=== PATIENT | male | born 1965 | race African-American/Black ===

== ENCOUNTER 2019-04-10 15:30 | Inpatient (IN) | payer BC ==
[2019-04-10 22:08] VITALS: BMI 24.3
--- NOTE | 2019-04-10 22:57 | HP ---
"COWS - Scale Resting Pulse: 0= [place] 80 or Below Sweatin=Flushed/Facial Moisture Restless Observation: 1= Difficult to Sit Still Pupil Size: 2= Moderately Dilated (Pupils = 4 mm) Bone or Joint Aches: 1= Mild Discomfort Runny Nose/ Eye Tearin= Runny Nose/Eyes GI Upset > 30mins: 1= Stomach Cramp Tremor Observation: 4= Gross Tremor/Twitching Yawning Observation: 0= None Anxiety or Irritability: 1=Feels Anxious/Irritable Goose Flesh Skin: 0=Smooth Skin COWS Score: 14 CIWA Score Nausea/Vomitin-No Nausea/No Vomiting Muscle Tremors: 4-Moderate,w/Arms Extend Anxiety: 1-Mildly Anxious Agitation: 3 Paroxysmal Sweats: 3 (Increased facial moisture) Orientation: 0-Oriented Tacttile Disturbances: 1-Very Mild Itch/Numbness Auditory Disturbances: 0-None Visual Disturbances: 0-None Headache: 2-Mild CIWA-Ar Total Score: 14 - Admission Criteria [facility]ASAS Guidelines: Admission for Medically Managed Detox: Requires at least one of the followin. CIWA greater than 12 2. Seizures within the past 24 hours 3. Delirium tremens within the past 24 hours 4. Hallucinations within the past 24 hours 5. Acute intervention needed for co occurring medical disorder 6. Acute intervention needed for co occurring psychiatric disorder 7. Severe withdrawal that cannot be handled at a lower level of care (continued vomiting, continued diarrhea, abnormal vital signs) requiring intravenous medication and/or fluids 8. Patient presents the following: CIWA greater than 12 Admission Criteria Met: Admission criteria met Admission ROS [facility] Chief Complaint: Having alcohol and heroin withdrawal Allergies/Adverse Reactions: Allergies Allergy/AdvReac Type Severity Reaction Status Date / Time No Known Allergies Allergy Verified 04/10/19 21:57 History of Present Illness: Here for heroin alcohol, and cocaine detox. Alcohol use began at age 23. States current use since started drinking. Cocaine - smokes $60 daily since age 23. Heroin use since age 32. Overdose x 4. Last OD in 2017. No Narcan Kit at home. Will consider upon discharge. Nicotine use began at age 20. PMHx: HTN, DM, Asthma (last exacerbation 6 months ago); Hep C (Not-treated) MHHx: Anxiety and depression. Denies thoughts of harming self or others. Not seeing a MH Provider Search Terms: Blayne Grijalva, 1965 Search Date: 04/10/2019 10:51:19 PM The Drug Utilization Report below displays all of the controlled substance prescriptions, if any, that your patient has filled in the last twelve months. The information displayed on this report is compiled from pharmacy submissions to the Department, and accurately reflects the information as submitted by the pharmacies. This report was requested by: Angelica Diaz | Reference #: [id number] There are no results for the search terms that you entered. Exam Limitations: No Limitations - Ebola screening Have you traveled outside of the country in the last 21 days: No (N) Have you had contact with anyone from an Ebola affected area: No Have you been sick,other than usual withdrawal symptoms: No (Denies recent measles exposure) Do you have a fever: No - Review of Systems Constitutional: Chills, Diaphoresis, Changes in sleep (Difficulty falling and staying asleep.), Unintentional Wgt. Loss EENT: reports: Blurred Vision, Nose Congestion, Dental Problems (Missing teeth. Chews and swallows ok) Respiratory: reports: No Symptoms reported Cardiac: reports: No Symptoms Reported GI: reports: Diarrhea (tannish, watery), Nausea, Indigestion (acid reflux - use to take prevacid), Abdominal cramping : reports: No Symptoms Reported Musculoskeletal: reports: Back Pain (achy r/t withdrawal), Muscle Pain (achy r/ t withdrawal) Integumentary: reports: Rash (on back r/t bite) Neuro: reports: Headache (Frontal) Endocrine: reports: No Symptoms Reported Hematology: reports: No Symptoms Reported Psychiatric: reports: Judgement Intact, Orientated x3, Agitated, Anxious, Depressed (Denies thoughts of harming self or others.) Patient History - PPD History Previous Implant?: Yes Documented Results: Negative w/o proof Implanted On Prior [facility] Admission?: Yes PPD to be Administered?: Yes - Smoking Cessation Smoking history: Current every day smoker Have you smoked in the past 12 months: Yes Aproximately how many cigarettes per day: 20 Hx Chewing Tobacco Use: No Initiated information on smoking cessation: Yes 'Breaking Loose' booklet given: 04/10/19 - Substance & Tx. History Hx Alcohol Use: Yes Hx Substance Use: Yes Substance Use Type: Alcohol, Cocaine, Heroin Hx Substance Use Treatment: Yes (detox, rehab) - Substances abused Heroin Substance route: Inhalation Frequency: Daily Amount used: 1 bundle/day Age of first use: 32 Date of last use: 04/09/19 Alcohol Substance route: Oral Frequency: Daily Amount used: 6 pack of 16 oz beers/day Age of first use: 23 Date of last use: 04/09/19 Admission Physical Exam S - Vital Signs Vital Signs: Vital Signs - 24 hr 04/10/19 22:05 Temperature 98.2 F Pulse Rate 72 Respiratory 16 Rate Blood Pressure 153/106 H - Physical General Appearance: Yes: Nourished, Mild Distress, Tremorous, Irritable, Sweating, Anxious HEENTM: Yes: EOMI (Jerking movement of eyes on lateral gaze.), Hearing grossly Normal, Normocephalic, Normal Voice, DENEEN (Pupils = 4 mm), Pharynx Normal, Rhinorrhea Respiratory: Yes: Lungs Clear, Normal Breath Sounds, No Respiratory Distress Neck: Yes: No masses,lesions,Nodules, Supple Breast: Yes: Breast Exam Deferred Cardiology: Yes: Regular Rhythm, Regular Rate, S1, S2, Murmur Abdominal: Yes: Soft, Increased Bowel Sounds, Tenderness (RUQ tenderness upon palpation. No guarding. No rebound.) Genitourinary: Yes: Within Normal Limits Back: Yes: Normal Inspection Musculoskeletal: Yes: full range of Motion, Gait Steady Extremities: Yes: Normal Capillary Refill, Normal Range of Motion, Non-Tender Neurological: Yes: home care provider II-XII NML intact (Jerking movement of eyes on lateral gaze.), Fully Oriented, Alert, Motor Strength 5/5, Normal Response Integumentary: Yes: Normal Color, Warm, Moist (Feet w/ flaky skin), Other ( Scattered scratch [place] and old scaring.) Lymphatic: Yes: Within Normal Limits - Diagnostic (1) Alcohol dependence with uncomplicated withdrawal Current Visit: Yes Status: Acute (2) Opioid dependence with withdrawal Current Visit: Yes Status: Acute (3) Nicotine dependence, uncomplicated Current Visit: Yes Status: Chronic Qualifiers: Nicotine product type: cigarettes Qualified Code(s): F17.210 - Nicotine dependence, cigarettes, uncomplicated (4) History of asthma Current Visit: No Status: Chronic (5) Diabetes Current Visit: Yes Status: Chronic Qualifiers: Diabetes mellitus type: type 2 Diabetes mellitus terminal clerk insulin use: without terminal clerk use Diabetes mellitus complication status: without complication Qualified Code(s): E11.9 - Type 2 diabetes mellitus without complications (6) Murmur, cardiac Current Visit: Yes Status: Chronic (7) Essential (primary) hypertension Current Visit: Yes Status: Chronic (8) Tinea pedis Current Visit: Yes Status: Chronic Qualifiers: Laterality: bilateral Qualified Code(s): B35.3 - Tinea pedis (9) Scratch lola Current Visit: Yes Status: Chronic (10) Nystagmus Current Visit: Yes Status: Acute (11) Cocaine dependence, uncomplicated Current Visit: Yes Status: Chronic Cleared for Admission S - Detox or Rehab [facility] Level of Care: Medically Managed Detox Regimen/Protocol: Methadone/Librium Claeared for Rehab Admission: No Inpatient Rehab Admission - Rehab Decision to Admit Inpatient rehab admission?: No"
[2019-04-10] MEDS ORDERED: NICOTINE POLACRILEX 2 MG GUM BUC PRN (23:21)
[2019-04-10] MEDS ORDERED: BISMUTH SUBSALICYLATE 524 MG/30 ML UD PO PRN (23:21)
[2019-04-10] MEDS ORDERED: MAGNESIUM HYDROX 2400MG/30ML ORAL SUSPENSION 30 ML CUP PO PRN (23:21)
[2019-04-10] MEDS ORDERED: MAG HYDROX/AL HYDROX/SIMETH 30 ML UNIT-DOSE CUP PO PRN (23:21)
[2019-04-10] MEDS ORDERED: METHOCARBAMOL 500 MG TABLET PO PRN (23:21)
[2019-04-10] MEDS ORDERED: PROCHLORPERAZINE MALEATE 5 MG TABLET PO PRN (23:21)
[2019-04-10] MEDS ORDERED: IBUPROFEN 400 MG TABLET (FP) PO PRN (23:21)
[2019-04-10] MEDS ORDERED: ACETAMINOPHEN 325 MG TABLET (FP) PO PRN ×2 (23:21)
[2019-04-10] MEDS ORDERED: MAGNESIUM CITRATE 300 ML BOTTLE PO PRN (23:21)
[2019-04-10] MEDS ORDERED: cloNIDine HCL 0.1 MG TABLET PO ONE (23:33)
[2019-04-10] MEDS ORDERED: INSULIN SLIDING SCALE (NOVOLOG) 1 VIAL SQ SCH (23:55)
[2019-04-11] MEDS ORDERED: cloNIDine HCL 0.1 MG TABLET PO PRN (00:05)
[2019-04-11] MEDS ORDERED: NALOXONE HCL 0.4 MG/ML VIAL IVPUSH PRN (00:05)
[2019-04-11] MEDS ORDERED: chlordiazePOXIDE HCL 25 MG CAPSULE PO PRN (00:05)
[2019-04-11] MEDS ORDERED: chlordiazePOXIDE HCL 25 MG CAPSULE PO ONE (00:05)
[2019-04-11] MEDS ORDERED: METHADONE HCL 10 MG TABLET (FOR DETOX USE ONLY) PO ONE ×2 (00:10→10:00)
[2019-04-11] MEDS: chlordiazePOXIDE HCL 25 MG CAPSULE PO SCH ×4 (05:31→22:15)
[2019-04-11] MEDS: INSULIN SLIDING SCALE (NOVOLOG) 1 VIAL SQ SCH ×4 (06:37→21:42)
[2019-04-11] MEDS: metFORMIN HCL 500 MG TABLET (FP) PO SCH ×2 (07:52→16:48)
[2019-04-11] MEDS ORDERED: metFORMIN HCL 500 MG TABLET (FP) PO SCH (10:00)
[2019-04-11 10:07] LABS: HEMATOCRIT 40.6 % (35.4-49); HEMOGLOBIN 13.3 GM/dL (11.7-16.9); MCHC 32.8 g/dl (32.0-35.9); MEAN CELL VOLUME 94.6 fl (80-96); MEAN PLT VOLUME 8.8 fl (7.5-11.1); PLATELET COUNT 222 K/MM3 (134-434); RBC 4.29 M/mm3 (4.00-5.60); RDW 13.7 % (11.9-15.9); WHITE BLOOD COUNT 3.5 K/mm3 (4.0-10.0)
[2019-04-11 10:24] LABS: ALBUMIN 3.6 g/dl (3.4-5.0); BILIRUBIN,TOTAL 0.5 mg/dL (0.2-1); CALCIUM 9.1 mg/dL (8.5-10.1); CREATININE 1.2 mg/dL (0.55-1.3); POTASSIUM 4.2 mmol/L (3.5-5.1); TOT PROT 7.4 g/dl (6.4-8.2)
[2019-04-11] MEDS: NICOTINE 21 MG/24 HOURS TOPICAL PATCH TD SCH (10:43)
[2019-04-11] MEDS: LISINOPRIL 10 MG TABLET (FP) PO SCH (10:43)
[2019-04-11] MEDS: PRENATAL VITAMINS W/ FOLIC ACID TABLET (FP) PO SCH (10:43)
--- NOTE | 2019-04-11 10:52 | EKG ---
Test Reason : Blood Pressure : / mmHG Vent. Rate : 067 BPM Atrial Rate : 067 BPM P-R Int : 152 ms QRS Dur : 092 ms QT Int : 396 ms P-R-T Axes : 075 051 040 degrees QTc Int : 418 ms NORMAL SINUS RHYTHM POSSIBLE LEFT ATRIAL ENLARGEMENT INCOMPLETE RBBB NO PREVIOUS ECGS AVAILABLE Confirmed by LINDA HUTCHINSON MD ([id number]) on 04/11/2019 10:52:29 AM Referred By: Confirmed By:LINDA HUTCHINSON MD
[2019-04-11] MEDS: TOLNAFTATE 1% CREAM 15 GM TUBE TP SCH ×2 (11:19→22:15)
[2019-04-11 11:40] LABS: PH,URINE 6.5 (5.0-8.0); URINE APPEARANCE CLEAR; URINE BILIRUBIN NEGATIVE (NEGATIVE); URINE COLOR YELLOW; URINE GLUCOSE (UA) NEGATIVE (NEGATIVE); URINE KETONE NEGATIVE (NEGATIVE); URINE LEUK ESTERASE NEGATIVE (NEGATIVE); URINE NITRITE NEGATIVE (NEGATIVE); URINE PROTEIN NEGATIVE (NEGATIVE)
[2019-04-11] MEDS ORDERED: PNEUMOC 13-VAL CONJ-DIP CRM/PF 0.5 ML DISP.SYRIN IM ONE (12:00)
[2019-04-11] MEDS ORDERED: PNEUMOCOCCAL 23 VACCINE 0.5 ML VIAL IM ONE (12:00)
--- NOTE | 2019-04-11 12:40 | PN ---
[facility] CIWA - CIWA Score Nausea/Vomitin-No Nausea/No Vomiting Muscle Tremors: 3 Anxiety: 4-Mod. Anxious/Guarded Agitation: 3 Paroxysmal Sweats: 1-Minimal Palms Moist Orientation: 0-Oriented Tacttile Disturbances: 0-None Auditory Disturbances: 0-None Visual Disturbances: 0-None Headache: 0-None Present CIWA-Ar Total Score: 11 S COWS - Scale Resting Pulse: 0= [place] 80 or Below Sweatin= Chills/Flushing Restless Observation: 3= Extraneous Movement Pupil Size: 0= Normal to Room Light Bone or Joint Aches: 0= None Runny Nose/ Eye Tearin= None GI Upset > 30mins: 0= None Tremor Observation of Outstretched Hands: 2= Slight Tremor Visible Yawning Observation: 0= None Anxiety or Irritability: 1=Feels Anxious/Irritable Goose Flesh Skin: 0=Smooth Skin COWS Score: 7 S Progress Note (SOAP) Subjective: C/O FATIGUE, ANXIETY,SWEATS/CHILLS. Objective: 04/11/19 12:39 Vital Signs 04/11/19 04/11/19 06:06 09:35 Temperature 97.8 F 97.9 F Pulse Rate 62 74 Respiratory 18 16 Rate Blood Pressure 129/80 128/84 Laboratory Tests 04/11/19 04/11/19 04/11/19 00:28 05:30 07:45 WBC 3.5 L RBC 4.29 Hgb 13.3 Hct 40.6 MCV 94.6 MCH 31.0 MCHC 32.8 RDW 13.7 Plt Count 222 MPV 8.8 Sodium Potassium Chloride Carbon Dioxide Anion Gap BUN Creatinine Est GFR (CKD-EPI)AfAm Est GFR (CKD-EPI)NonAf POC Glucometer 74 98 Random Glucose Calcium Total Bilirubin AST ALT Alkaline Phosphatase Total Protein Albumin Urine Color Urine Appearance Urine pH Ur Specific [place] Urine Protein Urine Glucose (UA) Urine Ketones Urine Blood Urine Nitrite Urine Bilirubin Urine Urobilinogen Ur Leukocyte Esterase 04/11/19 04/11/19 04/11/19 07:45 08:45 11:42 WBC RBC Hgb Hct MCV MCH MCHC RDW Plt Count MPV Sodium 140 Potassium 4.2 Chloride 104 Carbon Dioxide 31 Anion Gap 6 L BUN 15 Creatinine 1.2 Est GFR (CKD-EPI)AfAm 80.10 Est GFR (CKD-EPI)NonAf 69.11 POC Glucometer 123 Random Glucose 105 Calcium 9.1 Total Bilirubin 0.5 AST 37 ALT 39 Alkaline Phosphatase 65 Total Protein 7.4 Albumin 3.6 Urine Color Yellow Urine Appearance Clear Urine pH 6.5 Ur Specific [place] 1.020 Urine Protein Negative Urine Glucose (UA) Negative Urine Ketones Negative Urine Blood Negative Urine Nitrite Negative Urine Bilirubin Negative Urine Urobilinogen 2.0 Ur Leukocyte Esterase Negative Assessment: 04/11/19 12:40 WITHDRAWAL SX Plan: CONTINUE DETOX INCREASE PO FLUIDS.
[2019-04-11] MEDS: MENTHOL/PHENOL 1 EACH UD MM PRN (17:49)
[2019-04-11] MEDS: THIAMINE HCL 100 MG TABLET (FP) PO SCH (22:15)
[2019-04-11] MEDS: MELATONIN 5 MG TABLETS PO PRN (22:16)
[2019-04-12] MEDS: chlordiazePOXIDE HCL 25 MG CAPSULE PO SCH ×4 (05:33→22:28)
[2019-04-12] MEDS: INSULIN SLIDING SCALE (NOVOLOG) 1 VIAL SQ SCH ×4 (06:24→22:28)
[2019-04-12] MEDS: metFORMIN HCL 500 MG TABLET (FP) PO SCH ×2 (08:09→17:41)
[2019-04-12] MEDS ORDERED: METHADONE HCL 10 MG TABLET (FOR DETOX USE ONLY) PO ONE (10:00)
[2019-04-12] MEDS: TOLNAFTATE 1% CREAM 15 GM TUBE TP SCH ×2 (10:31→22:28)
[2019-04-12] MEDS: LISINOPRIL 10 MG TABLET (FP) PO SCH (10:31)
[2019-04-12] MEDS: NICOTINE 21 MG/24 HOURS TOPICAL PATCH TD SCH (10:32)
[2019-04-12] MEDS: PRENATAL VITAMINS W/ FOLIC ACID TABLET (FP) PO SCH (10:32)
--- NOTE | 2019-04-12 12:47 | PN ---
[facility] CIWA - CIWA Score Nausea/Vomitin-Mild Nausea/No Vomiting Muscle Tremors: 3 Anxiety: 2 Agitation: 2 Paroxysmal Sweats: 1-Minimal Palms Moist Orientation: 0-Oriented Tacttile Disturbances: 0-None Auditory Disturbances: 0-None Visual Disturbances: 0-None Headache: 0-None Present CIWA-Ar Total Score: 9 BHS COWS - Scale Resting Pulse: 0= [place] 80 or Below Sweatin= Chills/Flushing Restless Observation: 0= Sits Still Pupil Size: 0= Normal to Room Light Bone or Joint Aches: 1= Mild Discomfort Runny Nose/ Eye Tearin= Nasal Congestion GI Upset > 30mins: 1= Stomach Cramp Tremor Observation of Outstretched Hands: 1= Tremor [place], Not Seen Yawning Observation: 0= None Anxiety or Irritability: 1=Feels Anxious/Irritable Goose Flesh Skin: 0=Smooth Skin COWS Score: 6 S Progress Note (SOAP) Subjective: feeling ok today discuss medication assisted maintenance treatment program Objective: 04/12/19 12:46 Vital Signs Temperature 97.9 F 04/12/19 09:17 Pulse Rate 76 04/12/19 09:17 Respiratory Rate 18 04/12/19 09:17 Blood Pressure 118/82 04/12/19 09:17 O2 Sat by Pulse Oximetry (%) Laboratory Last Values WBC 3.5 K/mm3 (4.0-10.0) L 04/11/19 07:45 RBC 4.29 M/mm3 (4.00-5.60) 04/11/19 07:45 Hgb 13.3 GM/dL (11.7-16.9) 04/11/19 07:45 Hct 40.6 % (35.4-49) 04/11/19 07:45 MCV 94.6 fl (80-96) 04/11/19 07:45 MCH 31.0 pg (25.7-33.7) 04/11/19 07:45 MCHC 32.8 g/dl (32.0-35.9) 04/11/19 07:45 RDW 13.7 % (11.9-15.9) 04/11/19 07:45 Plt Count 222 K/MM3 (134-434) 04/11/19 07:45 MPV 8.8 fl (7.5-11.1) 04/11/19 07:45 Sodium 140 mmol/L (136-145) 04/11/19 07:45 Potassium 4.2 mmol/L (3.5-5.1) 04/11/19 07:45 Chloride 104 mmol/L (98-107) 04/11/19 07:45 Carbon Dioxide 31 mmol/L (21-32) 04/11/19 07:45 Anion Gap 6 MMOL/L (8-16) L 04/11/19 07:45 BUN 15 mg/dL (7-18) 04/11/19 07:45 Creatinine 1.2 mg/dL (0.55-1.3) 04/11/19 07:45 Est GFR (CKD-EPI)AfAm 80.10 04/11/19 07:45 Est GFR (CKD-EPI)NonAf 69.11 04/11/19 07:45 POC Glucometer 118 UNITS (80-120) 04/12/19 10:35 Random Glucose 105 mg/dL (74-106) 04/11/19 07:45 Calcium 9.1 mg/dL (8.5-10.1) 04/11/19 07:45 Total Bilirubin 0.5 mg/dL (0.2-1) 04/11/19 07:45 AST 37 U/L (15-37) 04/11/19 07:45 ALT 39 U/L (13-61) 04/11/19 07:45 Alkaline Phosphatase 65 U/L (45-117) 04/11/19 07:45 Total Protein 7.4 g/dl (6.4-8.2) 04/11/19 07:45 Albumin 3.6 g/dl (3.4-5.0) 04/11/19 07:45 Urine Color Yellow 04/11/19 08:45 Urine Appearance Clear 04/11/19 08:45 Urine pH 6.5 (5.0-8.0) 04/11/19 08:45 Ur Specific [place] 1.020 (1.010-1.035) 04/11/19 08:45 Urine Protein Negative (NEGATIVE) 04/11/19 08:45 Urine Glucose (UA) Negative (NEGATIVE) 04/11/19 08:45 Urine Ketones Negative (NEGATIVE) 04/11/19 08:45 Urine Blood Negative (NEGATIVE) 04/11/19 08:45 Urine Nitrite Negative (NEGATIVE) 04/11/19 08:45 Urine Bilirubin Negative (NEGATIVE) 04/11/19 08:45 Urine Urobilinogen 2.0 mg/dL (0.2-1.0) 04/11/19 08:45 Ur Leukocyte Esterase Negative (NEGATIVE) 04/11/19 08:45 RPR Titer Nonreactive (NONREACTIVE) 04/11/19 07:45 lab noted Assessment: 04/12/19 12:47 alcohol and opiate withdrawal sx Plan: continue detox
[2019-04-12] MEDS: MENTHOL/PHENOL 1 EACH UD MM PRN (17:43)
[2019-04-12] MEDS: THIAMINE HCL 100 MG TABLET (FP) PO SCH (22:28)
[2019-04-12] MEDS: MELATONIN 5 MG TABLETS PO PRN (22:28)
[2019-04-13] MEDS ORDERED: chlordiazePOXIDE HCL 10 MG CAPSULE PO PRN (05:00)
[2019-04-13] MEDS: chlordiazePOXIDE HCL 10 MG CAPSULE PO SCH ×4 (06:03→22:13)
[2019-04-13] MEDS: metFORMIN HCL 500 MG TABLET (FP) PO SCH ×2 (06:04→17:34)
[2019-04-13] MEDS: INSULIN SLIDING SCALE (NOVOLOG) 1 VIAL SQ SCH ×4 (06:15→22:12)
[2019-04-13] MEDS ORDERED: METHADONE HCL 10 MG TABLET (FOR DETOX USE ONLY) PO ONE (10:00)
[2019-04-13] MEDS: NICOTINE 21 MG/24 HOURS TOPICAL PATCH TD SCH (10:43)
[2019-04-13] MEDS: LISINOPRIL 10 MG TABLET (FP) PO SCH (10:44)
[2019-04-13] MEDS: PRENATAL VITAMINS W/ FOLIC ACID TABLET (FP) PO SCH (10:44)
[2019-04-13] MEDS: TOLNAFTATE 1% CREAM 15 GM TUBE TP SCH ×2 (10:44→22:13)
[2019-04-13] MEDS ORDERED: ALBUTEROL SO4 8 GM HFA INHALER IH ONE (14:34)
[2019-04-13] MEDS ORDERED: ALBUTEROL SO4 8 GM HFA INHALER IH PRN (14:46)
[2019-04-13] MEDS ORDERED: ALBUTEROL SO4 0.083% IH SOL 2.5 MG/3 ML VIAL.NEB. NEB PRN (15:29)
--- NOTE | 2019-04-13 15:31 | PN ---
[facility] CIWA - CIWA Score Nausea/Vomitin-Mild Nausea/No Vomiting Muscle Tremors: 2 Anxiety: 2 Agitation: 2 Paroxysmal Sweats: 1-Minimal Palms Moist Orientation: 0-Oriented Tacttile Disturbances: 0-None Auditory Disturbances: 0-None Visual Disturbances: 0-None Headache: 0-None Present CIWA-Ar Total Score: 8 S COWS - Scale Resting Pulse: 0= [place] 80 or Below Sweatin= Chills/Flushing Restless Observation: 0= Sits Still Pupil Size: 0= Normal to Room Light Bone or Joint Aches: 1= Mild Discomfort Runny Nose/ Eye Tearin= None GI Upset > 30mins: 0= None Tremor Observation of Outstretched Hands: 1= Tremor [place], Not Seen Yawning Observation: 0= None Anxiety or Irritability: 1=Feels Anxious/Irritable Goose Flesh Skin: 0=Smooth Skin COWS Score: 4 S Progress Note (SOAP) Subjective: chronic history of asthma ventolin and nebulizer prn mild wheezing bilaterally mid lob denies dizziness Objective: 04/13/19 15:37 Vital Signs Temperature 97.2 F L 04/13/19 13:28 Pulse Rate 72 04/13/19 13:28 Respiratory Rate 18 04/13/19 13:28 Blood Pressure 131/81 04/13/19 13:28 O2 Sat by Pulse Oximetry (%) Laboratory Last Values WBC 3.5 K/mm3 (4.0-10.0) L 04/11/19 07:45 RBC 4.29 M/mm3 (4.00-5.60) 04/11/19 07:45 Hgb 13.3 GM/dL (11.7-16.9) 04/11/19 07:45 Hct 40.6 % (35.4-49) 04/11/19 07:45 MCV 94.6 fl (80-96) 04/11/19 07:45 MCH 31.0 pg (25.7-33.7) 04/11/19 07:45 MCHC 32.8 g/dl (32.0-35.9) 04/11/19 07:45 RDW 13.7 % (11.9-15.9) 04/11/19 07:45 Plt Count 222 K/MM3 (134-434) 04/11/19 07:45 MPV 8.8 fl (7.5-11.1) 04/11/19 07:45 Sodium 140 mmol/L (136-145) 04/11/19 07:45 Potassium 4.2 mmol/L (3.5-5.1) 04/11/19 07:45 Chloride 104 mmol/L (98-107) 04/11/19 07:45 Carbon Dioxide 31 mmol/L (21-32) 04/11/19 07:45 Anion Gap 6 MMOL/L (8-16) L 04/11/19 07:45 BUN 15 mg/dL (7-18) 04/11/19 07:45 Creatinine 1.2 mg/dL (0.55-1.3) 04/11/19 07:45 Est GFR (CKD-EPI)AfAm 80.10 04/11/19 07:45 Est GFR (CKD-EPI)NonAf 69.11 04/11/19 07:45 POC Glucometer 117 UNITS (80-120) 04/13/19 12:07 Random Glucose 105 mg/dL (74-106) 04/11/19 07:45 Calcium 9.1 mg/dL (8.5-10.1) 04/11/19 07:45 Total Bilirubin 0.5 mg/dL (0.2-1) 04/11/19 07:45 AST 37 U/L (15-37) 04/11/19 07:45 ALT 39 U/L (13-61) 04/11/19 07:45 Alkaline Phosphatase 65 U/L (45-117) 04/11/19 07:45 Total Protein 7.4 g/dl (6.4-8.2) 04/11/19 07:45 Albumin 3.6 g/dl (3.4-5.0) 04/11/19 07:45 Urine Color Yellow 04/11/19 08:45 Urine Appearance Clear 04/11/19 08:45 Urine pH 6.5 (5.0-8.0) 04/11/19 08:45 Ur Specific [place] 1.020 (1.010-1.035) 04/11/19 08:45 Urine Protein Negative (NEGATIVE) 04/11/19 08:45 Urine Glucose (UA) Negative (NEGATIVE) 04/11/19 08:45 Urine Ketones Negative (NEGATIVE) 04/11/19 08:45 Urine Blood Negative (NEGATIVE) 04/11/19 08:45 Urine Nitrite Negative (NEGATIVE) 04/11/19 08:45 Urine Bilirubin Negative (NEGATIVE) 04/11/19 08:45 Urine Urobilinogen 2.0 mg/dL (0.2-1.0) 04/11/19 08:45 Ur Leukocyte Esterase Negative (NEGATIVE) 04/11/19 08:45 RPR Titer Nonreactive (NONREACTIVE) 04/11/19 07:45 lab noted Assessment: 04/13/19 15:38 withdrawal sx Plan: continue detox
[2019-04-13] MEDS: THIAMINE HCL 100 MG TABLET (FP) PO SCH (22:12)
[2019-04-14] MEDS: chlordiazePOXIDE HCL 10 MG CAPSULE PO SCH ×2 (06:08→16:50)
[2019-04-14] MEDS: metFORMIN HCL 500 MG TABLET (FP) PO SCH ×2 (06:08→16:50)
[2019-04-14] MEDS: INSULIN SLIDING SCALE (NOVOLOG) 1 VIAL SQ SCH ×4 (07:14→22:07)
[2019-04-14] MEDS ORDERED: METHADONE HCL 10 MG TABLET (FOR DETOX USE ONLY) PO ONE (10:00)
[2019-04-14] MEDS: TOLNAFTATE 1% CREAM 15 GM TUBE TP SCH ×2 (10:20→22:08)
[2019-04-14] MEDS: LISINOPRIL 10 MG TABLET (FP) PO SCH (10:20)
[2019-04-14] MEDS: PRENATAL VITAMINS W/ FOLIC ACID TABLET (FP) PO SCH (10:20)
[2019-04-14] MEDS: NICOTINE 21 MG/24 HOURS TOPICAL PATCH TD SCH (10:20)
--- NOTE | 2019-04-14 15:36 | PN ---
[facility] CIWA - CIWA Score Nausea/Vomitin-No Nausea/No Vomiting Muscle Tremors: 2 Anxiety: 1-Mildly Anxious Agitation: 2 Paroxysmal Sweats: No Perspiration Orientation: 0-Oriented Tacttile Disturbances: 0-None Auditory Disturbances: 0-None Visual Disturbances: 0-None Headache: 0-None Present CIWA-Ar Total Score: 5 S COWS - Scale Resting Pulse: 0= [place] 80 or Below Sweatin= No chills or Flushing Restless Observation: 0= Sits Still Pupil Size: 0= Normal to Room Light Bone or Joint Aches: 0= None Runny Nose/ Eye Tearin= None GI Upset > 30mins: 0= None Tremor Observation of Outstretched Hands: 0= None Yawning Observation: 1= 1-2x During Session Anxiety or Irritability: 1=Feels Anxious/Irritable Goose Flesh Skin: 0=Smooth Skin COWS Score: 2 [facility] Progress Note (SOAP) Subjective: feeling better today hesitating to discuss aftercare with staff discuss medication assisted maintenance treatment program Objective: 04/14/19 15:38 Vital Signs Temperature 96.7 F L 04/14/19 13:10 Pulse Rate 72 04/14/19 13:10 Respiratory Rate 18 04/14/19 13:10 Blood Pressure 129/74 04/14/19 13:10 O2 Sat by Pulse Oximetry (%) Laboratory Last Values WBC 3.5 K/mm3 (4.0-10.0) L 04/11/19 07:45 RBC 4.29 M/mm3 (4.00-5.60) 04/11/19 07:45 Hgb 13.3 GM/dL (11.7-16.9) 04/11/19 07:45 Hct 40.6 % (35.4-49) 04/11/19 07:45 MCV 94.6 fl (80-96) 04/11/19 07:45 MCH 31.0 pg (25.7-33.7) 04/11/19 07:45 MCHC 32.8 g/dl (32.0-35.9) 04/11/19 07:45 RDW 13.7 % (11.9-15.9) 04/11/19 07:45 Plt Count 222 K/MM3 (134-434) 04/11/19 07:45 MPV 8.8 fl (7.5-11.1) 04/11/19 07:45 Sodium 140 mmol/L (136-145) 04/11/19 07:45 Potassium 4.2 mmol/L (3.5-5.1) 04/11/19 07:45 Chloride 104 mmol/L (98-107) 04/11/19 07:45 Carbon Dioxide 31 mmol/L (21-32) 04/11/19 07:45 Anion Gap 6 MMOL/L (8-16) L 04/11/19 07:45 BUN 15 mg/dL (7-18) 04/11/19 07:45 Creatinine 1.2 mg/dL (0.55-1.3) 04/11/19 07:45 Est GFR (CKD-EPI)AfAm 80.10 04/11/19 07:45 Est GFR (CKD-EPI)NonAf 69.11 04/11/19 07:45 POC Glucometer 86 UNITS (80-120) 04/14/19 12:05 Random Glucose 105 mg/dL (74-106) 04/11/19 07:45 Calcium 9.1 mg/dL (8.5-10.1) 04/11/19 07:45 Total Bilirubin 0.5 mg/dL (0.2-1) 04/11/19 07:45 AST 37 U/L (15-37) 04/11/19 07:45 ALT 39 U/L (13-61) 04/11/19 07:45 Alkaline Phosphatase 65 U/L (45-117) 04/11/19 07:45 Total Protein 7.4 g/dl (6.4-8.2) 04/11/19 07:45 Albumin 3.6 g/dl (3.4-5.0) 04/11/19 07:45 Urine Color Yellow 04/11/19 08:45 Urine Appearance Clear 04/11/19 08:45 Urine pH 6.5 (5.0-8.0) 04/11/19 08:45 Ur Specific [place] 1.020 (1.010-1.035) 04/11/19 08:45 Urine Protein Negative (NEGATIVE) 04/11/19 08:45 Urine Glucose (UA) Negative (NEGATIVE) 04/11/19 08:45 Urine Ketones Negative (NEGATIVE) 04/11/19 08:45 Urine Blood Negative (NEGATIVE) 04/11/19 08:45 Urine Nitrite Negative (NEGATIVE) 04/11/19 08:45 Urine Bilirubin Negative (NEGATIVE) 04/11/19 08:45 Urine Urobilinogen 2.0 mg/dL (0.2-1.0) 04/11/19 08:45 Ur Leukocyte Esterase Negative (NEGATIVE) 04/11/19 08:45 RPR Titer Nonreactive (NONREACTIVE) 04/11/19 07:45 lab noted Assessment: 04/14/19 15:38 withdrawal sx Plan: continue detox
[2019-04-14] MEDS: MELATONIN 5 MG TABLETS PO PRN (22:08)
[2019-04-14] MEDS: THIAMINE HCL 100 MG TABLET (FP) PO SCH (22:08)
[2019-04-15] MEDS: chlordiazePOXIDE HCL 10 MG CAPSULE PO SCH (05:54)
[2019-04-15] MEDS ORDERED: METHADONE HCL 5 MG TABLET (FOR DETOX USE ONLY) PO ONE (06:00)
[2019-04-15] MEDS: metFORMIN HCL 500 MG TABLET (FP) PO SCH (06:51)
[2019-04-15] MEDS: INSULIN SLIDING SCALE (NOVOLOG) 1 VIAL SQ SCH ×2 (07:32→11:50)
[2019-04-15 09:22] VITALS: BP 105/73; PULSE 85; TEMP 98.6
[2019-04-15] MEDS: NICOTINE 21 MG/24 HOURS TOPICAL PATCH TD SCH (10:40)
[2019-04-15] MEDS: LISINOPRIL 10 MG TABLET (FP) PO SCH (10:40)
[2019-04-15] MEDS: PRENATAL VITAMINS W/ FOLIC ACID TABLET (FP) PO SCH (10:40)
[2019-04-15] MEDS: TOLNAFTATE 1% CREAM 15 GM TUBE TP SCH (10:40)
--- NOTE | 2019-04-15 13:20 | DS ---
[facility] Detox Discharge Summary Admission Date: 04/10/19 Discharge Date: 04/15/19 - History Present History: Alcohol Dependence, Opioid Dependence Additional Comments: 54 years old male admitted on 04/10/19 for alcohol and opiate withdrawal stabilization completed detox regimen aftercare as per counselor arrangement Pertinent Past History: bring in medication list and lab report to follow up appointment - Physical Exam Results Vital Signs: Vital Signs Temperature 98.6 F 04/15/19 09:21 Pulse Rate 85 04/15/19 09:21 Respiratory Rate 20 04/15/19 09:21 Blood Pressure 105/73 04/15/19 09:21 O2 Sat by Pulse Oximetry (%) Pertinent Admission Physical Exam Findings: alcohol and opiate withdrawal sx Laboratory Last Values WBC 3.5 K/mm3 (4.0-10.0) L 04/11/19 07:45 RBC 4.29 M/mm3 (4.00-5.60) 04/11/19 07:45 Hgb 13.3 GM/dL (11.7-16.9) 04/11/19 07:45 Hct 40.6 % (35.4-49) 04/11/19 07:45 MCV 94.6 fl (80-96) 04/11/19 07:45 MCH 31.0 pg (25.7-33.7) 04/11/19 07:45 MCHC 32.8 g/dl (32.0-35.9) 04/11/19 07:45 RDW 13.7 % (11.9-15.9) 04/11/19 07:45 Plt Count 222 K/MM3 (134-434) 04/11/19 07:45 MPV 8.8 fl (7.5-11.1) 04/11/19 07:45 Sodium 140 mmol/L (136-145) 04/11/19 07:45 Potassium 4.2 mmol/L (3.5-5.1) 04/11/19 07:45 Chloride 104 mmol/L (98-107) 04/11/19 07:45 Carbon Dioxide 31 mmol/L (21-32) 04/11/19 07:45 Anion Gap 6 MMOL/L (8-16) L 04/11/19 07:45 BUN 15 mg/dL (7-18) 04/11/19 07:45 Creatinine 1.2 mg/dL (0.55-1.3) 04/11/19 07:45 Est GFR (CKD-EPI)AfAm 80.10 04/11/19 07:45 Est GFR (CKD-EPI)NonAf 69.11 04/11/19 07:45 POC Glucometer 80 UNITS (80-120) 04/15/19 11:49 Random Glucose 105 mg/dL (74-106) 04/11/19 07:45 Calcium 9.1 mg/dL (8.5-10.1) 04/11/19 07:45 Total Bilirubin 0.5 mg/dL (0.2-1) 04/11/19 07:45 AST 37 U/L (15-37) 04/11/19 07:45 ALT 39 U/L (13-61) 04/11/19 07:45 Alkaline Phosphatase 65 U/L (45-117) 04/11/19 07:45 Total Protein 7.4 g/dl (6.4-8.2) 04/11/19 07:45 Albumin 3.6 g/dl (3.4-5.0) 04/11/19 07:45 Urine Color Yellow 04/11/19 08:45 Urine Appearance Clear 04/11/19 08:45 Urine pH 6.5 (5.0-8.0) 04/11/19 08:45 Ur Specific [place] 1.020 (1.010-1.035) 04/11/19 08:45 Urine Protein Negative (NEGATIVE) 04/11/19 08:45 Urine Glucose (UA) Negative (NEGATIVE) 04/11/19 08:45 Urine Ketones Negative (NEGATIVE) 04/11/19 08:45 Urine Blood Negative (NEGATIVE) 04/11/19 08:45 Urine Nitrite Negative (NEGATIVE) 04/11/19 08:45 Urine Bilirubin Negative (NEGATIVE) 04/11/19 08:45 Urine Urobilinogen 2.0 mg/dL (0.2-1.0) 04/11/19 08:45 Ur Leukocyte Esterase Negative (NEGATIVE) 04/11/19 08:45 RPR Titer Nonreactive (NONREACTIVE) 04/11/19 07:45 lab noted - Treatment Hospital Course: Detox Protocol Followed, Detoxed Safely, Responded well, Discharged Condition Good, Rehab Referral Accepted Patient has Accepted a Rehab Referral to: [facility] help support meeting - Medication Discharge Medications: Ambulatory Orders Lisinopril [Prinivil] 10 mg PO DAILY 04/10/19 metFORMIN HCL [Metformin HCl] 500 mg PO BID 04/10/19 - Diagnosis (1) Alcohol dependence with uncomplicated withdrawal Status: Acute (2) Opioid dependence with withdrawal Status: Acute (3) Diabetes Status: Chronic Qualifiers: Diabetes mellitus type: type 2 Diabetes mellitus jail insulin use: without jail use Diabetes mellitus complication status: without complication Qualified Code(s): E11.9 - Type 2 diabetes mellitus without complications (4) Essential (primary) hypertension Status: Chronic (5) Nicotine dependence, uncomplicated Status: Acute Qualifiers: Nicotine product type: cigarettes Qualified Code(s): F17.210 - Nicotine dependence, cigarettes, uncomplicated - AMA Did Patient Leave Against Medical Advice: No
== END 2019-04-15 11:57 | disposition home or self-care (01) | DRG 773 ==
LOC: YASAS 15:30 → Y3N 23:39
PROVIDERS: ADMIT Surgery; ATTEND Surgery
PROC: HZ2ZZZZ Detoxification Services for Substance Abuse Treatment (ICD-10-PCS; principal; 2019-04-10)
DX: F11.23 Opioid dependence with withdrawal (principal); F10.230 Alcohol dependence with withdrawal, uncomplicated; F14.20 Cocaine dependence, uncomplicated; F17.210 Nicotine dependence, cigarettes, uncomplicated; I10 Essential (primary) hypertension; E11.9 Type 2 diabetes mellitus without complications; R01.1 Cardiac murmur, unspecified; B35.3 Tinea pedis; H55.00 Unspecified nystagmus
CPT/HCPCS: 36415; 80053; 81003; 82962; 85027; 86593; 93005; 93010; J0735